=== PATIENT | female | born 1995 | race Caucasian/White ===

== ENCOUNTER 2024-08-29 11:12 | Inpatient (IN) | payer OTHER ==
[~2024-08-29] VITALS: Ht 165.1 cm; Wt 70.3 kg
[2024-08-30] MEDS ORDERED: LACTATED RINGER'S 2,000 ML IV PRN
[2024-08-30 05:40] LABS: HEMATOCRIT 33.8 % (35.0-50.0); HEMOGLOBIN 11.5 g/dL (12.0-18.0); MCH 30.4 (27-36); MCHC 34.1 g/dl (30-36); MCV 89.3 fl (81-99); RBC 3.78 M/ul (4.3-5.7); RDW 13.6 (10.5-15.0)
[2024-08-30 05:46] LABS: AMPHETAMINES, URINE NEGATIVE (NEGATIVE); BARBITURATES, URINE NEGATIVE (NEGATIVE); BENZODIAZEPINE, URINE NEGATIVE (NEGATIVE); BUPRENORPHINE, URINE NEGATIVE (NEGATIVE); CANNABINOID, URINE NEGATIVE (NEGATIVE); COCAINE, URINE NEGATIVE (NEGATIVE); ECSTASY, URINE NEGATIVE (NEGATIVE); FENTANYL, URINE NEGATIVE (NEGATIVE); METHADONE, URINE NEGATIVE (NEGATIVE); OPIATES, URINE NEGATIVE (NEGATIVE); OXYCODONE, URINE NEGATIVE (NEGATIVE); PHENCYCLIDINE, URINE NEGATIVE (NEGATIVE)
[2024-08-30 06:16] LABS: ABO B; ANTIBODY SCREEN NEGATIVE; RH POSITIVE
[2024-08-30] MEDS ORDERED: ondansetron HCL 4 MG/2 ML VIAL ONE ×2 (06:33→06:34)
[2024-08-30] MEDS ORDERED: OXYTOCIN 10 UNITS/ML VIAL ONE (06:33)
[2024-08-30] MEDS ORDERED: FAMOTIDINE 20 MG/ 2 ML VIAL ONE (06:33)
[2024-08-30] MEDS ORDERED: DEXAMETHASONE SOD PHOS 4 MG/ML VIAL ONE (06:33)
[2024-08-30] MEDS ORDERED: METOCLOPRAMIDE HCL 10 MG/2 ML SDV ONE (06:33)
[2024-08-30] MEDS ORDERED: Ropivacaine HCl 0.5% 30 ML VIAL ONE (06:34)
[2024-08-30] MEDS ORDERED: ePHEDrine sulfate 50 MG/ML AMP ONE (06:34)
[2024-08-30] MEDS ORDERED: SODIUM CHLORIDE 0.9% 40 ML IV ONE (06:34)
[2024-08-30] MEDS ORDERED: BUPIVACAINE 0.75% IN DEXTROSE 2 ML AMP ONE (06:37)
[2024-08-30] MEDS ORDERED: LIDOCAINE HCL 2% 5 ML SDV ONE (06:37)
[2024-08-30] MEDS ORDERED: MORPHINE SULFATE 1 MG/ML VIAL ONE (06:38)
[2024-08-30] MEDS ORDERED: LACTATED RINGER'S 1,000 ML IV ONE ×3 (06:39)
[2024-08-30] MEDS ORDERED: SOD+POT BICARB/CITRIC ACID 2 EA TABLET.EFF PO SCH (07:00)
[2024-08-30] MEDS ORDERED: CEFAZOLIN SODIUM 2 GM/20 ML SYR IV SCH (07:00)
[2024-08-30] MEDS ORDERED: IBLOOD GLUCOSE TEST STRIP 1 EA TEST VI PRN (08:00)
[2024-08-30] MEDS ORDERED: diphenhydrAMINE HCL 50 MG/ML VIAL IV PRN (08:00)
[2024-08-30] MEDS ORDERED: MORPHINE SULFATE 4 MG/ML VIAL IV PRN (08:00)
[2024-08-30] MEDS ORDERED: droPERidol 5 MG/2 ML VIAL IV PRN (08:00)
[2024-08-30] MEDS ORDERED: METOCLOPRAMIDE HCL 10 MG/2 ML SDV IV PRN ×2 (08:00)
[2024-08-30] MEDS ORDERED: PROCHLORPERAZINE EDISYLATE 10 MG/2 ML VIAL IV PRN ×2 (08:00)
[2024-08-30] MEDS ORDERED: fentaNYL citrate 50 MCG/ML SDV IV PRN (08:00)
[2024-08-30] MEDS ORDERED: diphenhydrAMINE HCL 25 MG CAP PO PRN (08:00)
[2024-08-30] MEDS ORDERED: MORPHINE SULFATE 10 MG/ML VIAL IV PRN (08:00)
[2024-08-30] MEDS ORDERED: KETOROLAC TROMETHAMINE 30 MG/ML VIAL IV PRN (08:00)
[2024-08-30] MEDS ORDERED: ondansetron HCL 4 MG/2 ML VIAL IV PRN ×2 (08:00)
[2024-08-30] MEDS ORDERED: NALOXONE HCL 0.4 MG SYR IV PRN ×2 (08:00)
[2024-08-30] MEDS ORDERED: OXYTOCIN/0.9 % SODIUM CHLORIDE 500 ML IV SCH (08:30)
[2024-08-30] MEDS ORDERED: bisacodyL 10 MG SUPP PR PRN (08:30)
[2024-08-30] MEDS ORDERED: PROMETHAZINE HCL 25 MG SUPP PR PRN (08:30)
[2024-08-30] MEDS ORDERED: PROMETHAZINE HCL 25 MG TAB PO PRN (08:30)
[2024-08-30] MEDS ORDERED: LIDOCAINE 2% VISCOUS 6 ML SYR TOP ONE (08:30)
[2024-08-30] MEDS ORDERED: HYDROCODONE/ACETA 5/325 TAB PO PRN (08:30)
[2024-08-30] MEDS ORDERED: LACTATED RINGER'S 1,000 ML IV SCH ×2 (08:33)
--- NOTE | 2024-08-30 08:48 | NUR ---
08/30/24 0848 Sheets,Yarely 0830 PT ARRIVED TO ROOM 104 WITH MILYABND, BABY AND FBC RN AT BEDSIDE. PT DENIES NAUSEA AND PAIN. HOB INCREASED SLIGHTLY. 0840 BABY TO CHEST WITH FBC RN, IV INFUSING LR WITH 30 PIT AND SITE WNL. VSS.
[2024-08-30 08:57] VITALS: BP 124/61
[2024-08-30] MEDS ORDERED: SENNOSIDES/DOCUSATE 1 EA TAB PO SCH (09:00)
[2024-08-30] MEDS ORDERED: KETOROLAC TROMETHAMINE 30 MG/ML VIAL IV SCH (14:00)
[2024-08-31 05:21] LABS: HEMOGLOBIN 10.6 g/dL (12.0-18.0)
[2024-08-31 05:23] LABS: MCH 30.5 (27-36); MCHC 34.1 g/dl (30-36); MCV 89.2 fl (81-99); RBC 3.47 M/ul (4.3-5.7); RDW 13.4 (10.5-15.0)
[2024-08-31] MEDS ORDERED: CEFAZOLIN SODIUM 2 GM/20 ML SYR IV SCH (07:00)
[2024-08-31] MEDS ORDERED: SOD+POT BICARB/CITRIC ACID 2 EA TABLET.EFF PO SCH (07:00)
[2024-08-31] MEDS ORDERED: METOCLOPRAMIDE HCL 10 MG/2 ML SDV IV PRN (08:00)
[2024-08-31] MEDS ORDERED: PROCHLORPERAZINE EDISYLATE 10 MG/2 ML VIAL IV PRN (08:00)
[2024-08-31] MEDS ORDERED: ondansetron HCL 4 MG/2 ML VIAL IV PRN (08:00)
[2024-08-31] MEDS ORDERED: IBUPROFEN 600 MG TAB PO SCH (14:00)
[2024-08-31] MEDS ORDERED: SIMETHICONE 80 MG CHEW PO SCH (21:00)
== END 2024-09-01 14:50 | disposition home or self-care (01) | DRG 788 ==
LOC: FBC 08-30 04:53
PROVIDERS: ADMIT Obstetrics & Gynecology; ATTEND Obstetrics & Gynecology
PROC: 10D00Z1 Extraction of Products of Conception, Low, Open Approach (ICD-10-PCS; principal; 2024-08-30 07:30)
DX: O34.211 Maternal care for low transverse scar from previous cesarean delivery (principal); Z3A.39 39 weeks gestation of pregnancy; Z37.0 Single live birth
CPT/HCPCS: 01961; 36415; 76942; 80307; 85027; 86850; 86900; 86901; A9270; J0690; J1100; J1885; J2003; J2274; J2405; J2590; J2765; J2795; J7121